=== PATIENT | female | born 2000 | race Caucasian/White ===

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

== ENCOUNTER 2021-09-13 21:17 | Emergency (ER) | payer OTHER ==
[~2021-09-13] VITALS: Ht 160 cm; Wt 56.8 kg
[~2021-09-13 21:17] MED LIST: bcp PO
[2021-09-13] MEDS ORDERED: DESO1TAB5 (21:42)
[2021-09-14 01:15] VITALS: BP 136/77
[2021-09-14] MEDS ORDERED: MORPHINE 4 MG/ML 1ML VIAL/SYRINGE IV ONE (01:40)
[2021-09-14] MEDS ORDERED: PERCOCET 5MG/325MG TAB PO ONE (02:05)
[2021-09-14] MEDS ORDERED: BACITRACIN OINTMENT 30GM TUBE TOP ONE (02:05)
== END 2021-09-14 03:10 | disposition left against medical advice (07) ==
LOC: M ED 21:17
DX: S01.01XA Laceration without foreign body of scalp, initial encounter (principal); S12.000A Unspecified displaced fracture of first cervical vertebra, initial encounter for closed fracture; W10.9XXA Fall (on) (from) unspecified stairs and steps, initial encounter; Z53.21 Procedure and treatment not carried out due to patient leaving prior to being seen by health care provider; Y92.9 Unspecified place or not applicable; Y93.9 Activity, unspecified; Y99.9 Unspecified external cause status

== ENCOUNTER 2024-06-14 10:30 | Inpatient (IN) | payer BC, OTHER ==
[~2024-06-14] VITALS: Ht 160 cm; Wt 60.5 kg
[~2024-06-14 10:30] MED LIST changes: +DESO1TAB5
[2024-06-14] MEDS ORDERED: AMOX875T2 PO (10:43)
[2024-06-14 12:12] LABS: BASO # 0.1 10^3/uL (0.0-0.2); BASO % 0.3 % (0.0-1.0); EOS % 0.1 % (0.0-3.0); HEMATOCRIT 40.8 % (36.0-47.0); HEMOGLOBIN 13.6 g/dl (12.0-15.5); LYMPH # 1.2 10^3/uL (1.5-5.0); LYMPH % 4.8 % (24.0-44.0); MEAN CORPUSCULAR HGB CONC 33.3 g/dl (32.0-36.5); MEAN CORPUSCULAR VOLUME 90.1 fl (80.0-96.0); MONO # 1.5 10^3/uL (0.0-0.8); MONO % 5.8 % (2.0-8.0); NEUTROPHILS # 22.4 10^3/uL (1.5-8.5); PLATELET COUNT, AUTOMATED 351 10^3/uL (150-450); RED BLOOD COUNT 4.53 10^6/uL (4.00-5.40); WHITE BLOOD COUNT 25.5 10^3/uL (4.0-10.0)
[2024-06-14 12:42] LABS: BLOOD UREA NITROGEN 6 MG/DL (9-23); CARBON DIOXIDE LEVEL 24 MMOL/L (20-31); CHLORIDE LEVEL 96 MMOL/L (98-107); CREATININE FOR GFR 0.54 MG/DL (0.55-1.30); GLOMERULAR FILTRATION RATE > 90.0 (>60); GLUCOSE, FASTING 82 MG/DL (60-100); POTASSIUM SERUM 4.1 MMOL/L (3.5-5.1); SODIUM LEVEL 133 MMOL/L (136-145)
[2024-06-14 12:52] LABS: HCG, SERUM QUALITATIVE NEGATIVE (NEGATIVE)
[2024-06-14] MEDS ORDERED: ISOVUE-370 76% 100ML VIAL As Ordered ONE (13:01)
[2024-06-14] MEDS: NS 0.9% IV ONE (13:23)
[2024-06-14] MEDS: PIPERACILLIN/TAZOBACTAM SOD 3.375 GM in DEXTROSE 5% (D5W) ADV/MINI-BAG 50 ML IV ONE (13:23)
[2024-06-14] MEDS: ONDANSETRON 4MG 2ML VIAL IV ONE (13:23)
[2024-06-14] MEDS: [UNRECOGNIZED DRUG - OTHER] IV ONE (13:23)
[2024-06-14] MEDS: MORPHINE 4 MG/ML 1ML VIAL IV ONE (13:24)
[2024-06-14 13:26] LABS: ERYTHROCYTE SEDIMENTATION RATE 109 mm/hr (0-20)
[2024-06-14 13:46] LABS: C REACTIVE PROTEIN QUANTITATIV 23.72 MG/DL (<1.0)
[2024-06-14] MEDS ORDERED: HOME MED LIST COMPLETE! XX SCH (14:15)
[2024-06-14] MEDS ORDERED: KETOROLAC 30 MG/ML 1ML VIAL IV PRN (15:10)
[2024-06-14] MEDS ORDERED: ACETAMINOPHEN *IV* 1,000 MG in IV 1 EA IV PRN (15:10)
[2024-06-14] MEDS ORDERED: ONDANSETRON 4MG 2ML VIAL IV PRN ×2 (16:25→18:25)
[2024-06-14] MEDS ORDERED: LIDOCAINE W/EPINEPHRINE 1% 20ML VIAL As Ordered ONE (17:10)
[2024-06-14] MEDS ORDERED: propofoL 200 MG/20 ML VIAL As Ordered ONE (17:57)
[2024-06-14] MEDS ORDERED: ONDANSETRON 4MG 2ML VIAL As Ordered ONE (17:57)
[2024-06-14] MEDS ORDERED: KETOROLAC 30 MG/ML 1ML VIAL As Ordered ONE (17:57)
[2024-06-14] MEDS ORDERED: MIDAZOLAM INJ 2MG/2ML VIAL As Ordered ONE (17:57)
[2024-06-14] MEDS ORDERED: CHLOROPROCAINE PRES. FREE 3% 20ML VIAL As Ordered ONE (17:57)
[2024-06-14] MEDS ORDERED: LIDOCAINE 2% 100MG/5ML SDV (FOR ANES.) As Ordered ONE (17:57)
[2024-06-14] MEDS ORDERED: fentaNYL 100 MCG/2 ML INJECTION As Ordered ONE (17:57)
[2024-06-14] MEDS ORDERED: METOCLOPRAMIDE INJ 10MG/2ML VIAL As Ordered ONE (17:57)
[2024-06-14] MEDS ORDERED: ACETAMINOPHEN 1000MG/100ML IV BAG As Ordered ONE (17:57)
[2024-06-14] MEDS: LIDOCAINE 1% MDV 20ML VIAL As Ordered ONE (18:00)
[2024-06-14] MEDS ORDERED: MORPHINE 2 MG/ML 1ML VIAL IV PRN (18:25)
[2024-06-14] MEDS ORDERED: oxyCODONE 5MG TAB PO PRN (18:25)
[2024-06-14] MEDS ORDERED: ACETAMINOPHEN 325 MG TAB PO PRN (18:25)
[2024-06-14] MEDS ORDERED: fentaNYL 100 MCG/2 ML INJECTION IV PRN (18:25)
[2024-06-14 19:30] VITALS: BP 98/64; TEMP 97.1; O2SAT 98
[2024-06-14 20:00] VITALS: BP 99/65; TEMP 97.5; O2SAT 98
[2024-06-14] MEDS: PIPERACILLIN/TAZOBACTAM SOD 4.5 GM in DEXTROSE 5% (D5W) ADV/MINI-BAG 50 ML IV SCH (20:19)
[2024-06-14] MEDS: PANTOPRAZOLE 40MG VIAL IV SCH (20:20)
[2024-06-14] MEDS: NS (Normal Saline) 0.9% 1,000 ML IV SCH (20:24)
[2024-06-14 21:00] VITALS: BP 97/65; TEMP 97.7; O2SAT 99
[2024-06-14 22:00] VITALS: BP 98/64; TEMP 97; O2SAT 98
[2024-06-14 22:51] VITALS: BP 95/66
[2024-06-15] VITALS (7 sets, daily range): BP systolic 90–128; BP diastolic 50–90; TEMP 97.2–98.1; O2SAT 98–99
[2024-06-15] MEDS: KETOROLAC 30 MG/ML 1ML VIAL IV SCH (00:41)
[2024-06-15 09:22] LABS: BASO % 0.2 % (0.0-1.0); HEMATOCRIT 35.6 % (36.0-47.0); HEMOGLOBIN 11.8 g/dl (12.0-15.5); LYMPH # 1.2 10^3/uL (1.5-5.0); LYMPH % 5.1 % (24.0-44.0); MEAN CORPUSCULAR HEMOGLOBIN 30.6 pg (27.0-33.0); MEAN CORPUSCULAR HGB CONC 33.1 g/dl (32.0-36.5); MEAN CORPUSCULAR VOLUME 92.2 fl (80.0-96.0); MONO # 0.8 10^3/uL (0.0-0.8); MONO % 3.5 % (2.0-8.0); NEUTROPHILS # 20.7 10^3/uL (1.5-8.5); PLATELET COUNT, AUTOMATED 360 10^3/uL (150-450); RED BLOOD COUNT 3.86 10^6/uL (4.00-5.40)
[2024-06-15 09:52] LABS: BLOOD UREA NITROGEN 6 MG/DL (9-23); CALCIUM LEVEL 8.1 MG/DL (8.5-10.1); CARBON DIOXIDE LEVEL 26 MMOL/L (20-31); CHLORIDE LEVEL 103 MMOL/L (98-107); CREATININE FOR GFR 0.54 MG/DL (0.55-1.30); GLOMERULAR FILTRATION RATE > 90.0 (>60); GLUCOSE, FASTING 189 MG/DL (60-100); POTASSIUM SERUM 3.9 MMOL/L (3.5-5.1); SODIUM LEVEL 136 MMOL/L (136-145)
[2024-06-15] MEDS: PERCOCET 5MG/325MG TAB PO PRN ×2 (15:51→20:46)
[2024-06-16 04:53] VITALS: BP 102/71; TEMP 98.1; O2SAT 99
[2024-06-16 06:35] LABS: BASO % 0.3 % (0.0-1.0); EOS # 0.1 10^3/uL (0.0-0.5); EOS % 1.1 % (0.0-3.0); HEMATOCRIT 31.3 % (36.0-47.0); HEMOGLOBIN 10.1 g/dl (12.0-15.5); LYMPH # 2.2 10^3/uL (1.5-5.0); LYMPH % 18.8 % (24.0-44.0); MEAN CORPUSCULAR HEMOGLOBIN 29.2 pg (27.0-33.0); MEAN CORPUSCULAR HGB CONC 32.3 g/dl (32.0-36.5); MEAN CORPUSCULAR VOLUME 90.5 fl (80.0-96.0); MONO # 0.7 10^3/uL (0.0-0.8); MONO % 5.6 % (2.0-8.0); NEUTROPHILS # 8.7 10^3/uL (1.5-8.5); NEUTROPHILS % 73.5 % (36.0-66.0); PLATELET COUNT, AUTOMATED 285 10^3/uL (150-450); RED BLOOD COUNT 3.46 10^6/uL (4.00-5.40); WHITE BLOOD COUNT 11.9 10^3/uL (4.0-10.0)
[2024-06-16 06:58] LABS: C REACTIVE PROTEIN QUANTITATIV 6.43 MG/DL (<1.0)
[2024-06-16 06:59] LABS: BLOOD UREA NITROGEN 8 MG/DL (9-23); CALCIUM LEVEL 7.9 MG/DL (8.5-10.1); CARBON DIOXIDE LEVEL 26 MMOL/L (20-31); CHLORIDE LEVEL 108 MMOL/L (98-107); CREATININE FOR GFR 0.62 MG/DL (0.55-1.30); GLOMERULAR FILTRATION RATE > 90.0 (>60); GLUCOSE, FASTING 86 MG/DL (60-100); POTASSIUM SERUM 3.8 MMOL/L (3.5-5.1); SODIUM LEVEL 144 MMOL/L (136-145)
[2024-06-16 12:00] VITALS: BP 100/70; TEMP 96.6
[2024-06-16] MEDS ORDERED: KETOROLAC 30 MG/ML 1ML VIAL IV PRN (13:10)
[2024-06-16] MEDS ORDERED: ALBUTEROL SULFATE 2.5MG/0.5ML INH CONCENTRATE NEB SOLN NEB PRN (13:10)
[2024-06-16] MEDS: SUCRALFATE SUSP 1GM/10ML UD PO SCH (13:32)
[2024-06-16] MEDS ORDERED: methocarbamoL 750 MG TAB PO PRN (13:45)
[2024-06-16] MEDS: LACTOBACILLUS ACIDOPHILUS CAP (BACID) PO SCH (14:09)
[2024-06-16] MEDS: METAMUCIL (PSYLLIUM) PACKET PO SCH (14:09)
[2024-06-16 20:01] VITALS: BP 99/71; TEMP 97.7; O2SAT 99
[2024-06-16] MEDS: PANTOPRAZOLE 40MG VIAL IV SCH (20:08)
[2024-06-16 22:16] VITALS: BP 99/71
[2024-06-17 04:00] VITALS: BP 101/69; TEMP 98.2; O2SAT 99
[2024-06-17 07:16] LABS: BASO % 0.4 % (0.0-1.0); EOS # 0.3 10^3/uL (0.0-0.5); EOS % 2.9 % (0.0-3.0); HEMATOCRIT 30.4 % (36.0-47.0); LYMPH # 2.1 10^3/uL (1.5-5.0); LYMPH % 22.2 % (24.0-44.0); MEAN CORPUSCULAR HEMOGLOBIN 29.8 pg (27.0-33.0); MEAN CORPUSCULAR HGB CONC 32.9 g/dl (32.0-36.5); MEAN CORPUSCULAR VOLUME 90.5 fl (80.0-96.0); MONO # 0.6 10^3/uL (0.0-0.8); MONO % 6.8 % (2.0-8.0); NEUTROPHILS # 6.2 10^3/uL (1.5-8.5); NEUTROPHILS % 67.3 % (36.0-66.0); PLATELET COUNT, AUTOMATED 311 10^3/uL (150-450); RED BLOOD COUNT 3.36 10^6/uL (4.00-5.40); WHITE BLOOD COUNT 9.2 10^3/uL (4.0-10.0)
[2024-06-17 07:35] LABS: C REACTIVE PROTEIN QUANTITATIV 4.18 MG/DL (<1.0)
[2024-06-17 07:39] LABS: BLOOD UREA NITROGEN 5 MG/DL (9-23); CALCIUM LEVEL 7.9 MG/DL (8.5-10.1); CARBON DIOXIDE LEVEL 26 MMOL/L (20-31); CHLORIDE LEVEL 109 MMOL/L (98-107); CREATININE FOR GFR 0.57 MG/DL (0.55-1.30); GLOMERULAR FILTRATION RATE > 90.0 (>60); GLUCOSE, FASTING 85 MG/DL (60-100); POTASSIUM SERUM 3.6 MMOL/L (3.5-5.1); SODIUM LEVEL 142 MMOL/L (136-145)
[2024-06-17 12:00] VITALS: BP 102/70; TEMP 97.2
[2024-06-17 19:56] VITALS: BP 108/75; TEMP 98.4; O2SAT 99
[2024-06-17 22:00] VITALS: BP 108/75
[2024-06-18 04:00] VITALS: BP 107/69; TEMP 97.9; O2SAT 99
[2024-06-18 06:11] VITALS: BP 107/69
[2024-06-18 06:39] LABS: BASO % 0.4 % (0.0-1.0); EOS # 0.4 10^3/uL (0.0-0.5); EOS % 3.5 % (0.0-3.0); HEMATOCRIT 33.3 % (36.0-47.0); HEMOGLOBIN 11.1 g/dl (12.0-15.5); LYMPH % 19.8 % (24.0-44.0); MEAN CORPUSCULAR HEMOGLOBIN 30.6 pg (27.0-33.0); MEAN CORPUSCULAR HGB CONC 33.3 g/dl (32.0-36.5); MEAN CORPUSCULAR VOLUME 91.7 fl (80.0-96.0); MONO # 0.7 10^3/uL (0.0-0.8); MONO % 6.9 % (2.0-8.0); NEUTROPHILS # 6.9 10^3/uL (1.5-8.5); NEUTROPHILS % 68.7 % (36.0-66.0); PLATELET COUNT, AUTOMATED 347 10^3/uL (150-450); RED BLOOD COUNT 3.63 10^6/uL (4.00-5.40)
[2024-06-18 07:25] LABS: C REACTIVE PROTEIN QUANTITATIV 4.05 MG/DL (<1.0)
[2024-06-18 07:31] LABS: BLOOD UREA NITROGEN < 5 MG/DL (9-23); CALCIUM LEVEL 8.3 MG/DL (8.5-10.1); CARBON DIOXIDE LEVEL 29 MMOL/L (20-31); CHLORIDE LEVEL 105 MMOL/L (98-107); CREATININE FOR GFR 0.63 MG/DL (0.55-1.30); GLOMERULAR FILTRATION RATE > 90.0 (>60); GLUCOSE, FASTING 82 MG/DL (60-100); POTASSIUM SERUM 3.6 MMOL/L (3.5-5.1); SODIUM LEVEL 142 MMOL/L (136-145)
[2024-06-18 08:00] VITALS: BP 110/71; TEMP 98.2; O2SAT 100
[2024-06-18] MEDS ORDERED: META1POW PO (13:19)
[2024-06-18] MEDS ORDERED: PANT40TA29 PO (13:19)
[2024-06-18] MEDS ORDERED: RISATAB3 PO (13:19)
[2024-06-18] MEDS ORDERED: KETOROLAC TROMETHAMINE 10 MG TAB PO PRN (13:20)
[2024-06-18] MEDS ORDERED: IBUP-1022 PO (13:22)
== END 2024-06-18 14:55 | disposition home or self-care (01) | DRG 710 ==
LOC: M ED 10:30 → M ED INP 15:09 → M MS5PR 19:30
PROVIDERS: ADMIT Internal Medicine Nephrology; ATTEND Internal Medicine Nephrology
PROC: 0D9QXZZ Drainage of Anus, External Approach (ICD-10-PCS; principal; 2024-06-15)
DX: A41.9 Sepsis, unspecified organism (principal); K61.1 Rectal abscess; F17.200 Nicotine dependence, unspecified, uncomplicated; F10.10 Alcohol abuse, uncomplicated

== ENCOUNTER 2024-11-12 18:54 | Emergency (ER) | payer BC ==
[~2024-11-12] VITALS: Ht 160 cm; Wt 61.8 kg
[~2024-11-12 18:54] MED LIST changes: +AMOX875T2 PO; +IBUP600T42 PO; +META1POW PO; +PANT40TA29 PO; +RISATAB3 PO
[2024-11-12 19:04] VITALS: BP 125/88; TEMP 100.1; O2SAT 99
== END 2024-11-12 21:50 | disposition left against medical advice (07) ==
LOC: M ED 18:54
DX: Z53.21 Procedure and treatment not carried out due to patient leaving prior to being seen by health care provider (principal)